=== PATIENT | female | born 1980 | race Caucasian/White ===

== ENCOUNTER 2017-05-03 03:40 | Inpatient (IN) | payer BC ==
[2017-05-03 04:12] LABS: ROM Internal QC QC Line Present
[2017-05-03] MEDS ORDERED: Misoprostol TAB* 200 MCG PR ONE (07:38)
[2017-05-03] MEDS ORDERED: Acetaminophen TAB* 325 MG PO PRN (07:51)
[2017-05-03] MEDS ORDERED: Glycerin ADULT SUPP PR PRN (07:51)
[2017-05-03] MEDS ORDERED: Witch Hazel PAD* JAR TOPICAL PRN (07:51)
[2017-05-03] MEDS ORDERED: Dibucaine 1% 28.35 GM TUBE PR PRN (07:51)
[2017-05-03] MEDS ORDERED: Simethicone CHEW TAB* 80 MG PO SCH (08:30)
[2017-05-03] MEDS: Ibuprofen TAB* 600 MG PO PRN ×2 (10:35→20:02)
[2017-05-03] MEDS: Docusate CAP* 100 MG PO SCH (12:19)
[2017-05-04] MEDS: Docusate CAP* 100 MG PO SCH ×3 (04:54→15:23)
[2017-05-04 08:22] VITALS: BP 94/57
[2017-05-04] MEDS ORDERED: Ferrous Gluconate TAB* 324 MG TAB PO SCH (09:00)
[2017-05-04] MEDS ORDERED: Tetan/Diph/Pertus SYR(Tdap)* 0.5 ML SYR(BOOSTRIX) use SYR IM ONE (09:00)
[2017-05-04 10:20] LABS: Hematocrit 37 % (35-47); Hemoglobin 12.9 g/dl (12.0-16.0); Mean Corpuscular HGB Conc 35 g/dl (31-36); Mean Corpuscular Hemoglobin 33 pg (27-31); Mean Corpuscular Volume 96 fL (80-97); Mean Platelet Volume 9 um3 (7.4-10.4); Red Blood Count 3.89 10^6/ul (4.0-5.4); Red Cell Distribution Width 14 % (10.5-15); White Blood Count 16.7 10^3/ul (3.5-10.8)
== END 2017-05-04 16:30 | disposition home or self-care (01) | DRG 560 ==
LOC: MCHOBOUT 03:40 → MCHOB 04:19
PROVIDERS: ADMIT Midwife; ATTEND Midwife
PROC: 10E0XZZ Delivery of Products of Conception, External Approach (ICD-10-PCS; principal; 2017-05-03)
PROC: 0HQ9XZZ Repair Perineum Skin, External Approach (ICD-10-PCS; 2017-05-03)
DX: O48.0 Post-term pregnancy (principal); O70.0 First degree perineal laceration during delivery; Z37.0 Single live birth; Z3A.40 40 weeks gestation of pregnancy
CPT/HCPCS: 36415; 84112; 85025; 90715; A9270-GY